=== PATIENT | male | born 1990 | race Caucasian/White ===

== ENCOUNTER 2017-10-19 15:35 | Emergency (ER) | payer BC ==
[2017-10-19 16:14] VITALS: BP 132/60
--- NOTE | 2017-10-19 16:51 | UC ---
Abdominal Pain Male HPI - HPI Summary HPI Summary: 27 y/o male presents to the urgent care c/p LUQ abdominal pain for the past 10 days. Pain is localized, pressure like, 4/10 w/o any radiation. Pt has not taking anything to alleviate symptoms. Pt has mild fatigue and decrease appetite for the pas 3 days. Normal BM. Pt denies fever, sore throat, URI, chest pain, N/V/D, urinary symptoms, back pain, blood in the stool. - History of Current Complaint Chief Complaint: UCGI Stated Complaint: LEFT RIB/SIDE PAIN 10 DAYS Time Seen by Provider: 10/19/17 16:23 Hx Obtained From: Patient Onset/Duration: Gradual Onset, Lasting Days - 10 days, Still Present, Worse Since - 3 days Timing: Constant Severity Initially: Mild Severity Currently: Moderate Pain Intensity: 4 Pain Scale Used: 0-10 Numeric Location: Discrete At: LUQ Radiates: No Character: Other - presssure like pain Aggravating Factor(s): Food Alleviating Factor(s): Rest Associated Signs And Symptoms: Positive: Decreased Appetite. Negative: Diaphoresis, Fever, Cough, Chest Pain, Dizzy, Back Pain, Blood in Stool, Urinary Symptoms, Vomiting, Diarrhea - Risk Factors Testicular Torsion: Negative Cardiac Risk Factors: Negative - Allergies/Home Medications Allergies/Adverse Reactions: Allergies Allergy/AdvReac Type Severity Reaction Status Date / Time Sulfa Antibiotics Allergy Unknown Verified 10/19/17 16:14 Reaction Details PMH/Surg Hx/FS Hx/Imm Hx Previously Healthy: Yes - Pt denies PMHX Endocrine History: Hypothyroidism - Surgical History Surgical History: Yes Surgery Procedure, Year, and Place: right shoulder x 2, last surgery was 2015 - Family History Known Family History: Positive: None Negative: Cardiac Disease - Social History Occupation: Employed Full-time Lives: With Family Alcohol Use: Occasionally Substance Use Type: Marijuana Substance Use Comment - Amount & Last Used: last night; pt's usual usage is a couple times weekly Smoking Status (MU): Former Smoker Length of Time of Smoking/Using Tobacco: a pack or two total in lifetime - Immunization History Most Recent Tetanus Shot: unknown Review of Systems Constitutional: Negative Skin: Negative Eyes: Negative ENT: Negative Respiratory: Negative Cardiovascular: Negative Gastrointestinal: Abdominal Pain - LUQ Genitourinary: Negative Motor: Negative Neurovascular: Negative Musculoskeletal: Negative Neurological: Negative Psychological: Negative Is Patient Immunocompromised?: No All Other Systems Reviewed And Are Negative: Yes Physical Exam Triage Information Reviewed: Yes Vital Signs: Initial Vital Signs Temp 98.6 F 10/19/17 16:10 Pulse 65 10/19/17 16:10 Resp 18 10/19/17 16:10 BP 132/60 10/19/17 16:10 Pulse Ox 99 10/19/17 16:10 - Additional Comments Vital Signs Reviewed: Yes General:Patient is a well developed and nourished male who is sitting comfortable in the examining table. Patient is not in any acute respiratory distress. Eyes: Positive: Conjunctiva Clear - PERRLA, EOMI, fundi grossly normal ENT: Positive: Normal ENT inspection, Hearing grossly normal, Pharynx normal, TMs normal Neck: Positive: Supple, Nontender, No Lymphadenopathy Respiratory: Positive: Chest non-tender, Lungs clear, Normal breath sounds, No respiratory distress Cardiovascular: Positive: RRR,S1 and S2 present, No Murmur, Pulses Normal, Brisk Capillary Refill Abdomen Description: Positive: Abd: Flat with no distention. No surface trauma, scars, incisions. normal bowel sounds present in all four quadrants. Tenderness to deep palpation of the LUQ, no guarding, rigidity to palpation. No masses palpated, no pulsation in epigastric area. No organomegaly. Negative [place] signs. No periumbilical tenderness. No rebound in the lower quadrants. NT over [place] point. Good femoral pulses bilaterally. No hernia noted. No CVAT bilaterally Musculoskeletal: Positive: Strength Intact, ROM Intact, No Edema,FROM in all major joints, no edema, no cyanosis or clubbing. Neuro: Alert and oriented x 3. No acute neurological deficits. Speech is normal. Psychological: WNL Skin: Dry and warm Abd Pain Male Course/Dx - Course Course Of Treatment: 27 y/o male presents to the urgent care c/p LUQ abdominal pain for the past 10 days. Pain is localized, pressure like, 4/10 w/o any radiation. Pt has not taking anything to alleviate symptoms. Pt has mild fatigue and decrease appetite for the pas 3 days. Normal BM. Pt denies fever, sore throat, URI, chest pain, N/V/D, urinary symptoms, back pain, blood in the stool.Hx obtained. Pt with LUQ abdomen with tendernesss on palpation on examination. At this [facility] [place] available to r/o any spleen or kidney abnormality. Dr Michaud consulted on Pt's symptoms. He evaluated the PT and recommended abdominal CT w/ PO contrast. I ordered UA. Pt was being prepared for CT procedure and he decided to leave since he didn't want to wait about 2 hrs for the procedure and he stated he will rather schedule tomorrow the CT as an outpatient at [place]. I explained the importance of doing the CT to r/o any spleen pathology, ulcer, kidney stone or even diverticulitis; and the risks of not performing the CT. Pt understood and he decided to sign AMA. Pt left [facility] ambulating, A&OX3 and hemodynamically stable. - Differential Dx/Clinical Impression Differential Diagnosis/HQI/PQRI: Diverticulitis, Pancreatitis, Peptic Ulcer Disease, Ureteral Stone, Other - spleen inflamation. Provider Diagnoses: 1- LUQ acute abdominal pain - Physician Notification/Consults Discussed Patient Care With: Donte Michaud - DR Michaud agreed with Pt's plan of care Discharge - Discharge Plan Condition: Stable Disposition: AGAINST MEDICAL ADVICE Patient Education Materials: Acute Abdominal Pain (ED) Referrals: Sarai Paredes NP [Primary Care Provider] - Additional Instructions: I highly recommend you to do an abdominal Ultrasound or abdominal CT to r/o any abdominal etiology. You decide to do as an outpatient service at [place]. Risks of not do further evaluation, sepsis, diverticulitis, kidney stone, colitis, etc.
== END 2017-10-19 17:26 | disposition left against medical advice (07) ==
LOC: UCCORT 15:35
DX: R10.12 Left upper quadrant pain (principal); R53.83 Other fatigue; E03.9 Hypothyroidism, unspecified; Z88.2 Allergy status to sulfonamides; F12.90 Cannabis use, unspecified, uncomplicated; Z87.891 Personal history of nicotine dependence
CPT/HCPCS: 99212; G0463